=== PATIENT | male | born 1980 | race Caucasian/White ===

== ENCOUNTER 2017-07-10 10:09 | Emergency (ER) | payer SELFPAY ==
[~2017-07-10] VITALS: Ht 170.2 cm; Wt 55.0 kg
[2017-07-10 10:14] VITALS: TEMP 37; Ht 170.2 cm; Wt 55.0 kg
[2017-07-10] MEDS ORDERED: METH4PAK PO (11:09)
[2017-07-10] MEDS ORDERED: TRAM-10 PO (11:09)
[2017-07-10] MEDS ORDERED: AMOX500C3 PO (11:09)
[2017-07-10 12:08] VITALS: BP 124/68; PULSE 89; O2SAT 96
--- NOTE | 2017-07-10 15:36 | EMERGENCY ROOM VISIT NOTE ---
History First contact with patient: 11:00 Chief Complaint: EAR PAIN Stated Complaint: MAJOR PAIN IN L EAR History of Present Illness The patient is a 36 year old male who presents to the Emergency Room with complaints of left ear and throat pain. The patient reports that his symptoms started last . He has had recent runny nose, congestion and nonproductive cough. Father was earwax, and used a wax softener and bulb suction without any relief of his pain. He denies any fevers or chills, and rates his discomfort a 10 out of 10. The patient reports that he had an appointment to see his PCP, however his doctor had to cancel the appointment because of illness. Review of Systems 10 system review was performed and was negative except for pertinent positives and negatives as indicated in history of present illness Past Medical/Surgical History Medical Problems: (1) Asthma (2) Dental Disorder Nos (3) Tobacco Use Disorder Surgical Problems: (1) History of back surgery Family History FH: diabetes mellitus FH: heart disease FH: hypertension Social History Smoking Status: Current Every Day Smoker Alcohol Use: none Marital Status: Occupation Status: employed Current/Historical Medications Scheduled Amoxicillin (Amoxil), 500 MG PO TID Methylprednisolone (Medrol Dosepak), 0 PO DAILY Scheduled PRN Tramadol (Ultram), 1-2 TAB PO Q4H PRN for Pain Physical Exam Vital Signs Date Time Temp Pulse Resp B/P (MAP) Pulse Ox O2 Delivery O2 Flow Rate FiO2 07/10/17 12:08 89 18 124/68 96 07/10/17 10:14 37.0 91 16 122/75 97 Physical Exam CONSTITUTIONAL: Healthy and well nourished. Alert and oriented X 3 with positive affect. Patient appears in moderate discomfort from pain. HEENT: Normocephalic, atraumatic. Pupils equal, round and reactive. No facial edema noted. Examination of left ear shows diffuse TM erythema. Bony landmarks and light reflexes are absent. No TM perforation or external auditory canal erythema/edema. Right ear was examined and was normal. NECK: Full active range of motion without discomfort. RESPIRATORY: Clear to auscultation bilaterally with no wheezing, crackles, rhonchi or stridor. CARDIOVASCULAR: Regular rate and rhythm with no murmurs, rubs or gallops. MUSCULOSKELETAL: Full range of motion of all joints without discomfort. INTEGUMENTARY: No rash or other significant dermatologic conditions noted. NEUROLOGIC: No focal neurologic deficits noted. Medical Decision & Procedures ED Course Patient history and physical exam were performed. Nurse's notes were reviewed. Vital signs were reviewed and were normal. Examination is consistent with otitis media. The patient was provided a prescription for amoxicillin and Ultram. He was encouraged to alternate ibuprofen and Tylenol for baseline pain relief. The patient was instructed to follow-up with his PCP if symptoms are not improving within the next week, or if he develops any drainage from the ear. The patient was happy with plan of care, voiced understanding of all discharge instructions, and rated his discomfort a 6 out of 10 at the conclusion of my exam. He refused any analgesics prior to discharge. Medical Decision [place] Drug Monitoring Program Search Results: patient reviewed within database, no issues identified Medication Reconcilliation Current Medication List: was personally reviewed by me Blood Pressure Screening Patient's blood pressure: Normal blood pressure Impression Primary Impression: Left otitis media Departure Information Dispostion Home / Self-Care Condition GOOD Prescriptions Tramadol (Ultram) 50 Mg Tab 1-2 TAB PO Q4H Y for Pain, #20 TAB For Initial Treatment Prov: Kip Peña PA 07/10/17 Methylprednisolone (MEDROL DOSEPAK) 4 Mg Lázaro 0 PO DAILY, #1 PKT Prov: Kip Peña PA 07/10/17 Amoxicillin (AMOXIL) 500 Mg Cap 500 MG PO TID for 10 Days, #30 CAP Prov: Kip Peña PA 07/10/17 Forms WORK / SCHOOL INSTRUCTIONS, HOME CARE DOCUMENTATION FORM, IMPORTANT VISIT INFORMATION Patient Instructions My [facility] Additional Instructions Complete all amoxicillin antibiotics as prescribed. Take Medrol Dosepak as prescribed. Ibuprofen 800 mg and/or Tylenol 1000 mg every 8 hours. You may also alternate these medications for more effective pain relief: Ibuprofen --4 HRS--> Tylenol --4 HRS--> ibuprofen --4 HRS--> Tylenol .... Ultram if needed for worse pain. Follow-up with your family doctor if symptoms are not improving within the next 5-7 days, or if you develop drainage from the ear. Problem Qualifiers Primary Impression: Left otitis media Otitis media type: unspecified Qualified Codes: H66.92 - Otitis media, unspecified, left ear
== END 2017-07-10 12:06 | disposition home or self-care (01) ==
LOC: C.EDB 10:12 → C.EDD 12:06
DX: H92.02 Otalgia, left ear (principal); H73.892 Other specified disorders of tympanic membrane, left ear; R07.0 Pain in throat; J45.909 Unspecified asthma, uncomplicated; F17.200 Nicotine dependence, unspecified, uncomplicated; Z83.3 Family history of diabetes mellitus; Z82.49 Family history of ischemic heart disease and other diseases of the circulatory system